=== PATIENT | female | born 1950 | race Caucasian/White ===

== ENCOUNTER 2017-04-11 09:29 | Emergency (ER) | payer OTHER, MEDICARE ==
[2017-04-11 09:47] VITALS: BP 155/94; PULSE 74; RESP 18; TEMP 99; O2SAT 97
--- NOTE | 2017-04-11 10:05 | EDPHY ---
H & P Time Seen by Provider: 04/11/17 09:39 HPI/ROS: 67-year-old female presents complaining of sore throat for several days. She states she has had fevers as well as postnasal drainage that is greenish brown in color. Several weeks ago she saw her dentist who noted that she had fluid in her sinuses. At that time she was treated with amoxicillin for possible dental root infection as well as to cover her sinus. She states she briefly felt better And however recently has had sore throat, pain with swallowing, pain in bilateral ears with swallowing and purulent sputum. Review of systems As per HPI General positive fever positive chills no weakness HEENT no eye pain no eye discharge. No eye redness, positive sore throat positive URI symptoms Respiratory positive cough, no shortness of breath Cardiac no chest pain, no peripheral edema GI no abdominal pain, no diarrhea, no constipation, no nausea, no vomiting no flank pain, no hematuria, no dysuria Musculoskeletal no myalgias, no joint pain Heme no easy bruising, no easy bleeding Endo no polyuria, no polydipsia Skin no rashes, no pruritus Neuro no syncope, no dizziness, no headaches Psych is no suicidal ideation, no homicidal ideation Past Medical/Surgical History: Hypertension, hyperlipidemia Social History: Denies alcohol or drug use Smoking Status: Never smoked Physical Exam: 67-year-old female Alert and oriented nontoxic appearance, no acute distress afebrile Atraumatic normocephalic Extraocular muscles intact, anicteric Nares mild yellowish discharge TMs clear bilaterally Right maxillary tenderness to palpation Oropharynx mild erythema no tonsillar swelling no exudate no uvular deviation, tolerating own secretions Neck supple no lymphadenopathy Lungs clear to auscultation bilaterally Heart regular rate and rhythm Abdomen normoactive bowel sounds soft nontender Extremities no cyanosis clubbing or edema Skin no rash Constitutional: Initial Vital Signs Temperature (C) 37.2 C 04/11/17 09:44 Heart Rate 74 04/11/17 09:44 Respiratory Rate 18 04/11/17 09:44 Blood Pressure 155/94 H 04/11/17 09:44 O2 Sat (%) 97 04/11/17 09:44 O2 Delivery Mode Room Air Allergies/Adverse Reactions: Sulfa (Sulfonamide Antibiotics) Allergy (Intermediate, Verified 04/11/17 09:43) rash & upset stomach Home Medications: Medication Instructions Recorded Amoxicillin/Clavulanate Pot 875 mg PO BID #20 tab 04/11/17 [Augmentin 875 MG TAB (*)] Lexapro 04/11/17 Lisinopril 04/11/17 SIMVASTATIN 04/11/17 Medical Decision Making ED Course/Re-evaluation: Patient seen and evaluated for sore throat, purulent postnasal drainage. Strep screen negative Impression Sinusitis Plan Augmentin twice daily times 10 days Follow-up PCP - Data Points Laboratory Results: 04/11/17 04/11/17 Unknown 09:45 Group A Strep Screen NEGATIVE (NEGATIVE) Group A Strep DNA Pending Departure - Departure Disposition: Home, Routine, Self-Care Clinical Impression: Acute sinusitis Condition: Good Instructions: Sinusitis (ED) Referrals: Miryam Griggs MD [Primary Care Provider] - As per Instructions Prescriptions: Amoxicillin/Clavulanate Pot [Augmentin 875 MG TAB (*)] 875 mg PO BID #20 tab
== END 2017-04-11 10:15 | disposition home or self-care (01) ==
LOC: CED 09:29
DX: J01.90 Acute sinusitis, unspecified (principal); I10 Essential (primary) hypertension
CPT/HCPCS: 87880-PO

== ENCOUNTER 2017-06-29 15:43 | Emergency (ER) | payer OTHER, MEDICARE ==
--- NOTE | 2017-06-29 15:52 | CPEKG ---
Heart Rate: 91 RR Interval: 659 P-R Interval: 148 QRSD Interval: 82 QT Interval: 344 QTC Interval: 424 P Troy: 71 QRS Troy: 46 T Wave Troy: 27 EKG Severity - ABNORMAL ECG - EKG Impression: SINUS RHYTHM EKG Impression: MULTIFORM VENTRICULAR PREMATURE COMPLEXES Electronically Signed By: Pablito Britt 01-Jul-2017 07:50:37
[2017-06-29 16:04] VITALS: RESP 16
--- NOTE | 2017-06-29 16:26 | EDPHY ---
H & P Stated Complaint: PALP Time Seen by Provider: 06/29/17 15:46 HPI/ROS: CHIEF COMPLAINT: Palpitations History by patient HISTORY OF PRESENT ILLNESS: 67-year-old woman with history of depression and hypertension and recent episode of persistent diarrhea and fever was started on azithromycin for this by her primary care physician yesterday comes in today because of concern about the azithromycin interacting with her Lexapro. Patient states that since she has had the diarrhea she has had intermittent episodes of palpitations or a funny fluttery feeling in her chest. This is not associated with any chest pain, shortness of breath, diaphoresis nausea vomiting. Typically occurs at rest not with activity. These symptoms were occurring before she was started on the azithromycin. She took her 1st dose of the azithromycin this morning and then remembered that this might interact with her Lexapro so she called her primary care physician who recommended she come in and get an EKG and have her electrolytes checked. Patient continues to have ongoing diarrhea however she is able to eat and drink without any difficulty and has been no nausea or vomiting. She states that she give a stool sample which was positive for Campylobacter which is why she was started on the azithromycin. Patient has had no episodes of chest pain or shortness of breath and had a negative stress test 4 years ago in [place]. She has not had any syncopal or presyncopal episodes today. REVIEW OF SYSTEMS: As in HPI, and all other systems reviewed and are negative Source: Patient - Personal History Current Tetanus/Diphtheria Vaccine: Yes - Medical/Surgical History Hx Asthma: No Hx Chronic Respiratory Disease: No Hx Diabetes: No Hx Cardiac Disease: No Hx Renal Disease: No Hx Cirrhosis: No Hx Alcoholism: No Hx HIV/AIDS: No Hx Splenectomy or Spleen Trauma: No Other PMH: htn, high cholestrol, ectopic surg, tonsilectomy, c/s - Social History Smoking Status: Never smoked - Physical Exam Exam: General Appearance: Alert, comfortable, nontoxic-appearing. Head: normocephalic, atraumatic Eyes: Pupils equal and round, reactive to light, no pallor or injection. Mouth: Mucous membranes moist. Respiratory: Normal, effort, lungs are clear to auscultation. No wheezes, rales or rhonchi. Cardiovascular: Regular rate and rhythm. S1, S2, no murmurs, gallops or rubs appreciated Gastrointestinal: Abdomen is soft and nontender, no masses, bowel sounds normal. Back: No CVA tenderness, no bony tenderness Neurological: Awake, alert and oriented x 3, no pronator drift, normal gait, no pronator drift Skin: Warm and dry, no rashes. Musculoskeletal: No deformities or tenderness. Extremities: full range of motion, no edema, DP2+ bilat Psychiatric: Patient has normal affect, there is no agitation. Constitutional: Initial Vital Signs Temperature (C) 37.0 C 06/29/17 15:45 Heart Rate 84 06/29/17 15:45 Respiratory Rate 16 06/29/17 15:45 Blood Pressure 136/98 H 06/29/17 15:45 O2 Sat (%) 98 06/29/17 15:45 O2 Delivery Mode Room Air Allergies/Adverse Reactions: Sulfa (Sulfonamide Antibiotics) Allergy (Intermediate, Verified 06/29/17 16:00) rash & upset stomach Home Medications: Medication Instructions Recorded Lexapro 04/11/17 Lisinopril 04/11/17 SIMVASTATIN 04/11/17 AZITHROMYCIN 06/29/17 Medical Decision Making - Diagnostics EKG Interpretation: Normal sinus rhythm at a rate of 91 with PVCs, normal axis, normal intervals, no ST segment abnormalities. Impression abnormal G EKG but normal intervals. ED Course/Re-evaluation: 67-year-old woman referred in by her primary care physician because of palpitations and starting azithromycin and Lexapro. ECG shows no evidence of prolonged QT with a corrected QT interval of 0.390. Patient has normal electrolytes including potassium, calcium and magnesium. We discussed the low but non-existent risk of prolonged QT and torsade de pointes when taking azithromycin and Lexapro together.. Given that she has been persistently symptomatic with her Campylobacter diarrhea I think it is prudent that she finishes the course since at this time there is no evidence of interaction causing prolonged QT interval at this time and minimal other risk factors for this problem. I do recommend she avoids grapefruit juice or other additional medications so that this risk is not compounded. Patient understands and is agreeable to this plan. - Data Points Laboratory Results: Laboratory Results 06/29/17 16:30 06/29/17 16:30 Sodium 139 mEq/L mEq/L (135-145) Potassium 4.1 mEq/L mEq/L (3.5-5.2) Chloride 102 mEq/L mEq/L (97-110) Carbon Dioxide 24 mEq/l mEq/l (22-31) Anion Gap 13 mEq/L mEq/L (8-16) BUN 18 mg/dL mg/dL (7-23) Creatinine 0.8 mg/dL mg/dL (0.6-1.0) Estimated GFR > 60 Glucose 92 mg/dL mg/dL (70-100) Calcium 9.3 mg/dL mg/dL (8.5-10.4) Magnesium 2.2 mg/dL mg/dL (1.6-2.3) Departure - Departure Disposition: Home, Routine, Self-Care Clinical Impression: Palpitations, Premature ventricular beats Condition: Good Additional Instructions: You were seen by Dr. Bonnie Busby today. You have a normal potassium, calcium and magnesium today. You have a normal QT interval on your ECG. You are having occasional irregular beats called premature ventricular contractions (PVC) which are not dangerous or worrisome. Given your normal QT interval on you ECG and your persistent diarrhea, I recommend you finish your course of azithromycin and take the next 2 doses. You may try to take your Lexapro 8-12 hr apart from the azithromycin to be cautious. Avoid taking any additional drugs and avoid grapefruit juice. Continue probiotics. Follow up with the primary care physician. Return for any worsening or new concerns.
[2017-06-29 16:33] VITALS: PULSE 76; O2SAT 96
[2017-06-29 17:07] VITALS: BP 130/76; TEMP 98.4
== END 2017-06-29 17:12 | disposition home or self-care (01) ==
LOC: CED 15:43
DX: I49.3 Ventricular premature depolarization (principal); I10 Essential (primary) hypertension
CPT/HCPCS: 80048-PO; 83735-PO

== ENCOUNTER → 2017-09-23 | Outpatient (CLI) | payer OTHER, MEDICARE | LOC: BMCIMAGING 11:56 | PROVIDERS: ATTEND Internal Medicine | DX: Z12.31 Encounter for screening mammogram for malignant neoplasm of breast (principal) ==

== ENCOUNTER 2017-11-25 20:21 | Emergency (ER) | payer OTHER, MEDICARE ==
[2017-11-25 20:48] VITALS: BP 154/106
--- NOTE | 2017-11-25 21:07 | EDPHY ---
H & P Stated Complaint: R FACE FEELS TIGHT, R SIDED ARAGON. Time Seen by Provider: 11/25/17 20:37 HPI/ROS: CHIEF COMPLAINT: Right-sided headache History by patient HISTORY OF PRESENT ILLNESS: 67-year-old woman with history of hypertension and high cholesterol presents complaining of intermittent right-sided headache for the last week. Headache is located to her right confucianist area. It is not associated with any fever, chills, nausea or vomiting or photophobia. Headache was of gradual, not thunderclap, onset. It occurs frequently at night. There are no clear triggering factors. She describes the pain as a mild and she has not taken anything for the pain. Today she felt that the whole right side of her face felt"heavy"and she was worried that she might be having his stroke or aneurysm prompting her to seek medical attention. She denies any focal numbness or weakness. She denies any trouble with speech or visual changes. She has no hx of migraines. She has had some associated neck tenderness that she relates to recent pilates class. REVIEW OF SYSTEMS: As in HPI, and all other systems reviewed and are negative Source: Patient - Personal History Current Tetanus/Diphtheria Vaccine: Unsure Current Tetanus Diphtheria and Acellular Pertussis (TDAP): Unsure - Medical/Surgical History Hx Asthma: No Hx Chronic Respiratory Disease: No Hx Diabetes: No Hx Cardiac Disease: No Hx Renal Disease: No Hx Cirrhosis: No Hx Alcoholism: No Hx HIV/AIDS: No Hx Splenectomy or Spleen Trauma: No Other PMH: HTN, high cholesterol, R ectopic surg, tonsilectomy,. c/s x 3, depression. - Social History Smoking Status: Never smoked - Physical Exam Exam: Gen: Well appearing,younger appearing than stated age Heent: PERRL, EOMI, no facial assymmetry, no temporal artery tenderness, op clear, TM clear bilat, no TMJ tenderness, + clicking Neck: FROM, no bony tenderness, no meningismus, mild trapezius tenderness Lungs: CTA, no wheezes, rales or rhonchi, nl resp effort Cor: RRR, s1, s2, no murmurs, gallups or rubs apprecieated abd: soft, non-distended, non-tender, no masses ext: rad and dp pulses 2+ and equal bilaterally, no deformity or lesion, FROM arms and legs neuro: AAOx3, CN 2-12 intact, no pronator drift, strength 5/5 equal bilaterally in upper and lower extremities, nl gait, reflexes 2+ and = bilat, finger to nose intact, sens intact throughout and symmetric skin: warm, dry , no lesions or rash back: no bony tenderness, no cva tenderness, no deformity Constitutional: Initial Vital Signs Temperature (C) 36.6 C 11/25/17 20:45 Heart Rate 86 11/25/17 20:45 Respiratory Rate 18 11/25/17 20:45 Blood Pressure 154/106 H 11/25/17 20:45 O2 Sat (%) 94 11/25/17 20:45 O2 Delivery Mode Room Air Allergies/Adverse Reactions: Sulfa (Sulfonamide Antibiotics) Allergy (Intermediate, Verified 06/29/17 16:00) rash & upset stomach Home Medications: Medication Instructions Recorded Lexapro 04/11/17 Lisinopril 04/11/17 SIMVASTATIN 04/11/17 Medical Decision Making ED Course/Re-evaluation: 67 yo woman complains of headache and facial "heaviness" but with completely normal neurological exam, fluent speech and mild headache. There is no evidence of acute CVA at this time or indication for neuroimaging since there is no neuro abnormality or thunderclap onset.. I suspect a muscle tension headache given the relation to her neck pain and new pilates. Patient was given reassurance and we discussed signs/symptoms of worrisome headaches. Departure - Departure Disposition: Home, Routine, Self-Care Clinical Impression: Headache Condition: Good Instructions: Acute Headache (ED) Additional Instructions: You were seen by Dr. Bonnie Busby today. I suspect you're having a muscle tension headache. I recommend acetaminophen for pain and massage. There is no evidence of stroke or other serious neurological problem today. I also recommend he follow up with her dentist to get a private security guard for your TMJ symptoms. Return for any worsening or new concerns. Referrals: Miryam Griggs MD [Primary Care Provider] - As per Instructions
== END 2017-11-25 21:14 | disposition home or self-care (01) ==
LOC: CED 20:21
DX: R51 Headache (principal); I10 Essential (primary) hypertension

== ENCOUNTER → 2018-02-12 | Outpatient (CLI) | payer OTHER, MEDICARE | LOC: BMCIMAGING 09:55 | PROVIDERS: ATTEND Internal Medicine | DX: R68.84 Jaw pain (principal) ==

== ENCOUNTER → 2018-04-22 | Outpatient (CLI) | payer OTHER, MEDICARE | LOC: FIMAGING 12:33 | PROVIDERS: ATTEND Internal Medicine | DX: N85.8 Other specified noninflammatory disorders of uterus (principal); N83.311 Acquired atrophy of right ovary; Z78.0 Asymptomatic menopausal state ==

== ENCOUNTER → 2018-05-02 | Outpatient (CLI) | payer OTHER, MEDICARE ==
[~2018-05-02] MED LIST: IOPAMIDOL (ISOVUE-300) 100 ML BTL ONE
== END ==
LOC: FIMAGING 09:39
PROVIDERS: ATTEND Internal Medicine
DX: R10.32 Left lower quadrant pain (principal)
CPT/HCPCS: 74177; Q9967; 82565-PO